=== PATIENT | female | born 1995 | race American Indian/Alaskan Native ===

== ENCOUNTER 2020-12-23 05:00 | Emergency (ER) | payer OTHER ==
[2020-12-23] MEDS ORDERED: ONDANSETRON 4 MG/2 ML INJ IV ONE ×2 (05:10→09:15)
--- NOTE | 2020-12-23 05:14 | Event Note ---
ED Screening Note Date of service: 12/23/20 Time: 05:12 ED Screening Note: Patient is a 25-year-old -[place] female G2, P1, A1 who presents for abnormal vaginal bleeding x1 week. States spontaneous 1 week ago. Patient was unable to follow-up with [facility] as she was incarcerated. He presents tonight for continuous vaginal bleeding. States using 4-5 pads daily. States n/v since this am. This initial assessment/diagnostic orders/clinical plan/treatment(s) is/are subject to change based on patients health status, clinical progression and re- assessment by fellow clinical providers in the ED. Further treatment and workup at subsequent clinical providers discretion. Patient/guardian urged not to elope from the ED as their condition may be serious if not clinically assessed and managed. Initial orders include: cbc, bmp, ua, US Pelvis, IV, Zofran c
[2020-12-23 05:33] LABS: Basophils # (Auto) 0.1 K/mm3 (0.0-0.1); Eosinophils % (Auto) 0.5 % (0.0-4.3); Hematocrit 34.4 % (30.3-42.9); Hemoglobin 11.1 gm/dl (10.1-14.3); Lymphocytes # (Auto) 3.1 K/mm3 (1.2-5.4); Lymphocytes % (Auto) 30.9 % (13.4-35.0); Mean Corpuscular HGB Conc 32 % (30-34); Mean Corpuscular Volume 84 fl (79-97); Monocytes % (Auto) 9.8 % (0.0-7.3); Platelet Count 397 K/mm3 (140-440); Red Blood Count 4.12 M/mm3 (3.65-5.03); Red Cell Distribution Width 15.7 % (13.2-15.2)
[2020-12-23 05:49] LABS: Blood Urea Nitrogen 9 mg/dL (7-17); Calcium 9.6 mg/dL (8.4-10.2); Hemolysis Index 2
[2020-12-23 05:53] LABS: BUN/Creatinine Ratio 15
[2020-12-23] MEDS ORDERED: MORPHINE 4 MG/1 ML INJ IV ONE ×2 (06:10→09:16)
[2020-12-23] MEDS ORDERED: SODIUM CHLORIDE 0.9% 1000 ML 1,000 ML IV ONE (06:10)
--- NOTE | 2020-12-23 06:13 | Emergency Department Report ---
HPI - General Chief Complaint: Vaginal Bleeding Time Seen by Provider: 12/23/20 05:58 - HPI HPI: This is a 25-year-old -[place] female who presents to the emergency department with complaint of pelvic pain and heavy vaginal bleeding, along with nausea with vomiting, that has been going on for the past 1 to 2 weeks. Patient took 4 pills, given to her by the [facility] in [place], for a spontaneous , and the symptoms began shortly after starting this medication. With this the patient is G1, P0. She was about 8 weeks gestation. She denies any other past medical history. Currently she says that her pelvic pain is about 9 out of 10 in intensity. No known aggravating or alleviating factors. She has not taken anything for symptoms prior to presentation today. ED Past Medical Hx - Past Medical History Previous Medical History?: No - Surgical History Past Surgical History?: No - Social History Smoking Status: Never Smoker Substance Use Type: None - Medications Home Medications: Home Medications Medication Instructions Recorded Confirmed Last Taken Type HYDROcodone/APAP 5-325 [[place] 1 each PO Q6HR PRN #8 tablet 12/23/20 Unknown Rx 5/325] Methylergonovine [Methergine] 0.2 mg PO Q8HR #8 tablet 12/23/20 Unknown Rx Nitrofurantoin [place]/M-Cryst 100 mg PO Q12HR #14 capsule 12/23/20 Unknown Rx [Macrobid CAP] Ondansetron [Zofran Odt] 4 mg PO Q8HR PRN #15 tab.rapdis 12/23/20 Unknown Rx ED Review of Systems ROS: Stated complaint: VAGINAL BLEEDING Other details as noted in HPI Comment: All other systems reviewed and negative Constitutional: denies: chills, fever Eyes: denies: eye pain, vision change ENT: denies: ear pain, throat pain Respiratory: denies: cough, shortness of breath Cardiovascular: denies: chest pain, palpitations Gastrointestinal: nausea, vomiting Genitourinary: other (heavy vaginal bleeding, pelvic pain). denies: dysuria Musculoskeletal: denies: back pain, arthralgia Skin: denies: rash, lesions Neurological: denies: headache, weakness Physical Exam - Physical Exam Physical Exam: GENERAL: The patient is well-developed well-nourished. HENT: Normocephalic. Atraumatic. Patient has moist mucous membranes. EYES: Extraocular motions are intact. NECK: Supple. Trachea is midline. CHEST/LUNGS: Clear to auscultation. There is no respiratory distress noted. HEART/CARDIOVASCULAR: Regular. There is no tachycardia. There is no murmur. ABDOMEN: Abdomen is soft. No abdominal tenderness to palpation. Patient has normal bowel sounds. Obese habitus. SKIN: Skin is warm and dry. NEURO: The patient is awake, alert, and oriented. The patient is cooperative. The patient has no focal neurologic deficits. Normal speech. MUSCULOSKELETAL: There is no tenderness or deformity. There is no limitation range of motion. ED Course - Reevaluation(s) Reevaluation #1: 12/23/20 10:57 As the patient was going to be discharged, she stood up and again having increased vaginal bleeding. She immediately bled through 1 pad. I will repeat the patient's H&H and we will continue to monitor. - Consultations Consultation #1: 12/23/20 07:51 I spoke to the MATHEMATICS DEPARTMENT CHAIR on-call, Dr. Carney, who listened to the patient's history, presentation, and lab/imaging results. She has recommended starting the patient on Methergine 0.2 mg 3 times a day x 3 days and then the patient can follow-up with her MATHEMATICS DEPARTMENT CHAIR outpatient. ED Medical Decision Making - Lab Data Result diagrams: 12/23/20 12:09 12/23/20 05:20 Lab Results 12/23/20 12/23/20 12/23/20 Range/Units 05:20 05:20 06:43 WBC 10.1 (4.5-11.0) K/mm3 RBC 4.12 (3.65-5.03) M/mm3 Hgb 11.1 (10.1-14.3) gm/dl Hct 34.4 (30.3-42.9) % MCV 84 (79-97) fl MCH 27 L (28-32) pg MCHC 32 (30-34) % RDW 15.7 H (13.2-15.2) % Plt Count 397 (140-440) K/mm3 Lymph % (Auto) 30.9 (13.4-35.0) % [place] % (Auto) 9.8 H (0.0-7.3) % Eos % (Auto) 0.5 (0.0-4.3) % Baso % (Auto) 1.0 (0.0-1.8) % Lymph # (Auto) 3.1 (1.2-5.4) K/mm3 [place] # (Auto) 1.0 H (0.0-0.8) K/mm3 Eos # (Auto) 0.0 (0.0-0.4) K/mm3 Baso # (Auto) 0.1 (0.0-0.1) K/mm3 Seg Neutrophils % 57.8 (40.0-70.0) % Seg Neutrophils # 5.9 (1.8-7.7) K/mm3 Sodium 134 L (137-145) mmol/L Potassium 3.6 (3.6-5.0) mmol/L Chloride 100.4 (98-107) mmol/L Carbon Dioxide 21 L (22-30) mmol/L Anion Gap 16 mmol/L BUN 9 (7-17) mg/dL Creatinine 0.6 (0.6-1.2) mg/dL Estimated GFR > 60 ml/min BUN/Creatinine Ratio 15 % Glucose 103 H (65-100) mg/dL Calcium 9.6 (8.4-10.2) mg/dL HCG, Quant 519.5 H (0-4) mIU/mL Urine Color (Yellow) Urine Turbidity (Clear) Urine pH (5.0-7.0) Ur Specific [place] (1.003-1.030) Urine Protein (Negative) mg/dL Urine Glucose (UA) (Negative) mg/dL Urine Ketones (Negative) mg/dL Urine Blood (Negative) Urine Nitrite (Negative) Urine Bilirubin (Negative) Urine Urobilinogen (<2.0) mg/dL Ur Leukocyte Esterase (Negative) Urine WBC (Auto) (0.0-6.0) /HPF Urine RBC (Auto) (0.0-6.0) /HPF U Epithel Cells (Auto) (0-13.0) /HPF Urine Mucus /HPF Blood Type Antibody Screen 12/23/20 12/23/20 12/23/20 Range/Units 12:09 12:09 Unknown WBC (4.5-11.0) K/mm3 RBC (3.65-5.03) M/mm3 Hgb 10.0 L (10.1-14.3) gm/dl Hct 30.0 L (30.3-42.9) % MCV (79-97) fl MCH (28-32) pg MCHC (30-34) % RDW (13.2-15.2) % Plt Count (140-440) K/mm3 Lymph % (Auto) (13.4-35.0) % [place] % (Auto) (0.0-7.3) % Eos % (Auto) (0.0-4.3) % Baso % (Auto) (0.0-1.8) % Lymph # (Auto) (1.2-5.4) K/mm3 [place] # (Auto) (0.0-0.8) K/mm3 Eos # (Auto) (0.0-0.4) K/mm3 Baso # (Auto) (0.0-0.1) K/mm3 Seg Neutrophils % (40.0-70.0) % Seg Neutrophils # (1.8-7.7) K/mm3 Sodium (137-145) mmol/L Potassium (3.6-5.0) mmol/L Chloride (98-107) mmol/L Carbon Dioxide (22-30) mmol/L Anion Gap mmol/L BUN (7-17) mg/dL Creatinine (0.6-1.2) mg/dL Estimated GFR ml/min BUN/Creatinine Ratio % Glucose (65-100) mg/dL Calcium (8.4-10.2) mg/dL HCG, Quant (0-4) mIU/mL Urine Color Red (Yellow) Urine Turbidity Cloudy (Clear) Urine pH 7.0 (5.0-7.0) Ur Specific [place] 1.018 (1.003-1.030) Urine Protein 30 mg/dl (Negative) mg/dL Urine Glucose (UA) Neg (Negative) mg/dL Urine Ketones 80 (Negative) mg/dL Urine Blood Lg (Negative) Urine Nitrite Neg (Negative) Urine Bilirubin Neg (Negative) Urine Urobilinogen < 2.0 (<2.0) mg/dL Ur Leukocyte Esterase Tr (Negative) Urine WBC (Auto) 67.0 H (0.0-6.0) /HPF Urine RBC (Auto) > 182.0 (0.0-6.0) /HPF U Epithel Cells (Auto) 1.0 (0-13.0) /HPF Urine Mucus Few /HPF Blood Type B POSITIVE Antibody Screen Negative - Radiology Data Radiology results: report reviewed Pelvic Ultrasound HISTORY: vag bleeding. Patient reportedly had a miscarriage one week ago TECHNIQUE: Grayscale and color imaging performed. COMPARISON: None FINDINGS: Transabdominal imaging was performed with no endovaginal imaging. Uterus measures 11.6 x 5.1 x 5.7 cm. There is an ovoid echogenic area measuring 2.7 x 1.3 cm in maximal dimension in the lower uterine segment region but there is no appreciable internal blood flow. Endometrial echo complex measures 9 mm. Left ovary appears unremarkable. Right ovary is not visualized. No pelvic free fluid. IMPRESSION: 1. Echogenic ovoid area in the lower uterine segment with no internal blood flow. This could represent a residual blood clot. If this were retained products, I would expect internal blood flow. 2. Right ovary not visualized. - Medical Decision Making This patient presents to the emergency department with pelvic cramping pain and moderate to heavy vaginal bleeding that has been going on since patient had, what sounds like Cytotec, for an 2 weeks ago. On examination the patient appears slightly uncomfortable, but otherwise does not appear in any acute distress. The patient's labs show a hemoglobin of 11, a beta hCG of about 500, and a urinary tract infection with about 65 WBCs. Patient was given IV fluid resuscitation and IV analgesia. Pelvic ultrasound shows an echogenic ovoid area of the lower uterine segment without internal blood flow that appears most consistent with a blood clot, and less consistent with retained products of conception. I spoke to the MATHEMATICS DEPARTMENT CHAIR on-call who recommends Methergine and outpatient follow-up. As the patient got up to be discharged, she began having heavy bleeding with large clots. A repeat H&H shows a hemoglobin of 10. This is a 1 g drop, however, some of that is due to the liter of IV fluid that may have diluted some of the hemoglobin down. The patient was reevaluated multiple times over multiple hours and now says that she is feeling improved and that the bleeding has slowed down. Through shared decision making, the patient will be discharged home to follow-up with her MATHEMATICS DEPARTMENT CHAIR. She has been given a prescription for pain medication, antibiotics. The patient understands that she should return to the closest emergency department with any worsening of her symptoms, especially if she begins to bleed to the point where she is going through 1 pad an hour, or with any acute distress. The patient was seen ambulatory upon discharge and both appears and feels stable. Critical Care Time: No Critical care attestation.: If time is entered above; I have spent that time in minutes in the direct care of this critically ill patient, excluding procedure time. ED Disposition Clinical Impression: Post- complication, Dysfunctional uterine bleeding, Pelvic pain UTI (urinary tract infection) Qualifiers: Urinary tract infection type: acute cystitis Hematuria presence: with hematuria Qualified Code(s): N30.01 - Acute cystitis with hematuria Disposition: HOME / SELF CARE / HOMELESS Is pt being admited?: No Condition: Stable Instructions: Abnormal Uterine Bleeding, Pelvic Pain, Female, Urinary Tract Inf ection, Adult Additional Instructions: Please follow-up with your MATHEMATICS DEPARTMENT CHAIR in the next few days. Take all medications only as prescribed. You have been prescribed a medication that is sedating and therefore should not be taken prior to driving, working, and responsible for children and in no way should be mixed with alcohol of any quantity. Return to the emergency department with any worsening of your symptoms including increased vaginal bleeding or increased abdominal/pelvic pain, new or concerning symptoms not addressed during this current emergency department visit, or with any acute distress. Prescriptions: Nitrofurantoin [place]/M-Cryst [Macrobid CAP] 100 mg PO Q12HR #14 capsule Methylergonovine [Methergine] 0.2 mg PO Q8HR #8 tablet HYDROcodone/APAP 5-325 [[place] 5/325] 1 each PO Q6HR PRN #8 tablet PRN Reason: Pain Ondansetron [Zofran Odt] 4 mg PO Q8HR PRN #15 tab.rapdis PRN Reason: Nausea Referrals: OBGYN, Your [Other] - 2-3 Days PRIMARY CARE,MD [Primary Care Provider] - 2-3 Days
[2020-12-23] MEDS ORDERED: ONDANSETRON 4 MG/2 ML INJ ONE ×2 (07:20→07:28)
--- NOTE | 2020-12-23 07:27 | Ultrasound Report ---
Pelvic Ultrasound HISTORY: vag bleeding. Patient reportedly had a miscarriage one week ago TECHNIQUE: Grayscale and color imaging performed. COMPARISON: None FINDINGS: Transabdominal imaging was performed with no endovaginal imaging. Uterus measures 11.6 x 5.1 x 5.7 cm. There is an ovoid echogenic area measuring 2.7 x 1.3 cm in maxim al dimension in the lower uterine segment region but there is no appreciable internal blood flow. End ometrial echo complex measures 9 mm. Left ovary appears unremarkable. Right ovary is not visualized. No pelvic free fluid. IMPRESSION: 1. Echogenic ovoid area in the lower uterine segment with no internal blood flow. This could represen t a residual blood clot. If this were retained products, I would expect internal blood flow. 2. Right ovary not visualized. Signer Name: Hosea Ch MD Signed: 12/23/2020 7:23 AM Workstation Name: [id number]
[2020-12-23] MEDS ORDERED: METHYLERGONOVINE 0.2 MG TABLET PO ONE (07:48)
[2020-12-23 09:17] LABS: Bilirubin,Urine NEG (Negative); Blood,Urine LG (Negative); Color,Urine Red (Yellow); Mucus,Urine FEW /HPF; Urobilinogen,Urine < 2.0 mg/dL (<2.0)
[2020-12-23 09:30] LABS: RBC,Urine > 182.0 /HPF (0.0-6.0)
[2020-12-23] MEDS ORDERED: cefTRIAXone/NS 1 GM/50 ML 1 GM/50 ML BAG IV ONE (09:33)
[2020-12-23] MEDS ORDERED: HYDROcodone/ACETAMINOPHEN 5-325 MG TAB PO ONE (13:56)
[2020-12-23 14:58] VITALS: BP 128/71
== END 2020-12-23 14:58 | disposition home or self-care (01) ==
LOC: ED 05:00
DX: O03.80 Unspecified complication following complete or unspecified spontaneous abortion (principal); R10.2 Pelvic and perineal pain; N93.8 Other specified abnormal uterine and vaginal bleeding
CPT/HCPCS: 36415; 76856; 80048; 81001; 84702; 85014; 85018; 85025; 86850; 86900; 86901; 87086; 96361; 96365; 96375; 96376; 99284; J0696; J2270; J2405; J7030